=== PATIENT | male | born 1960 | race African-American/Black ===

== ENCOUNTER 2016-07-21 07:28 | Day surgery (SDC) | payer MEDICARE, OTHER ==
--- NOTE | ~2016-07-21 | OP ---
Record Of Operation [facility] [address] [place]. [address] NAME: AZRA REYES : 62 STATUS : [facility]#: [id number] AGE: 56 ADM/REG DATE : 07/21/16 MR#: [id number] REPORT SERV DATE: 07/21/16 DICTATED BY: TADEO CRABTREE III DATE: 07/21/16 REPORT STATUS : Draft TRANSCRIBED BY: MODL DATE: 07/21/16 DATE OF PROCEDURE: 07/21/2016 PREOPERATIVE DIAGNOSIS: Difficult catheterization. POSTOPERATIVE DIAGNOSIS: Urethral stricture. PROCEDURE: Cystoscopy and dilation of urethral stricture. SURGEON: Tadeo Crabtree M.D. ANESTHESIA: General. BLOOD LOSS: None. SPECIMENS: None. DRAINS: A 22-Chinese [place]-tip catheter. INDICATION: Mr. Reyes is a 56-year-old white male with a neurogenic bladder secondary to paraplegia. He requires intermittent catheterizations and these are becoming increasingly more difficult at the facility where he lives. Consent is obtained for cystoscopy and possible urethral dilation. PROCEDURE IN DETAIL: After consent was obtained, the patient was identified. He was taken to the OR and put to sleep. He was positioned in the low lithotomy position and prepped and draped in the usual fashion. The 22-Chinese cystoscope was inserted and advanced along the course of the urethra. A stricture was encountered in the bulbar urethra. I was able to dilate with the scope and it was then advanced up into the prostatic urethra. This had a very high median bar in conjunction with his body habitus. Once the bladder was entered, it was very angulated. I then drained the bladder. I could not do a complete inspection of the bladder secondary to the odd positioning of the scope. The guidewire was then passed through the scope and the scope was removed. Taylor sounds were used to dilate to 30- Chinese. A 22-Chinese [place]-tip catheter was then inserted over the wire and the balloon was inflated to 10 mL. The wire was removed and the catheter was hooked up to gravity drainage. The patient tolerated the procedure well. PH/MODL Tadeo Crabtree III, M.D. / [id number] Record Of Operation [place] [address] [address] [address] NAME: AZRA REYES : 62 STATUS : [facility] PAT#: [id number] AGE: 56 ADM/REG DATE : 07/21/16 MR#: [id number] REPORT SERV DATE: 07/21/16 DICTATED BY: TADEO CRABTREE III DATE: 07/21/16 REPORT STATUS : Draft TRANSCRIBED BY: YAO DATE: 07/21/16 CC: Tova Valladraes III, M.D.
[~2016-07-21 07:28] MED LIST: BEN GAY TOP; CIP5 PO; CLARIT10 PO; DCN100 PO; DSS PO; FLOMAX4 PO; GLUCOPHXR PO; HYDROCHLOROT12.5 MG PO; KLOR-CON M2020 MEQ PO; L40 PO; LIPITOR10 PO; LISINOPRIL40 MG PO; MACROBID PO; MIRALAX POWDER1 PKT PO; MIRALAXPKT PO; NORV10 PO; PRILO PO; RELA5 PO; SEPTRA DS1 TAB PO; TESS PO; ZOL50 PO; ZOLOFT25 MG PO
== END 2016-07-21 14:22 | disposition home or self-care (01) ==
LOC: SDC 07:28
PROVIDERS: Urology
PROC: 0T7D8DZ Dilation of Urethra with Intraluminal Device, Via Natural or Artificial Opening Endoscopic (ICD-10-PCS; principal; 2016-07-21 08:30)
DX: N35.9 Urethral stricture, unspecified (principal); E66.9 Obesity, unspecified; I10 Essential (primary) hypertension; E11.9 Type 2 diabetes mellitus without complications; G82.20 Paraplegia, unspecified; E78.5 Hyperlipidemia, unspecified; R56.9 Unspecified convulsions; Q85.00 Neurofibromatosis, unspecified; I25.10 Atherosclerotic heart disease of native coronary artery without angina pectoris; K21.9 Gastro-esophageal reflux disease without esophagitis
CPT/HCPCS: 82962; 94640; C1769; J2370; J2405; J3010